=== PATIENT | female | born 1975 | race Two or more races ===

== ENCOUNTER 2018-09-05 22:35 | Emergency (ER) | payer OTHER ==
[~2018-09-05] VITALS: Ht 167.6 cm; Wt 140.6 kg
[2018-09-05] MEDS ORDERED: NKM (22:46)
[2018-09-05 22:48] VITALS: BP 126/80
--- NOTE | 2018-09-05 23:09 | Emergency Room Report ---
History of Present Illness General Chief Complaint: Pain Source: Patient Present Illness HPI Patient fell 2 weeks ago. She alleges that she fell down 12 steps. She was seen in [facility], [place]. She was bruised in her head and also had an injury to her left leg and knee. The x-ray did knee and gave her crutches which she was unable to use. She's been taking Motrin but didn't take any yesterday. She's not been sleeping for the last 3 nights. She had a big bump underneath the knee that is the place where the main pain is. She had numbness there that starting to resolve at this time. She feels a bump in that area still. She's given a prescription of Vicodin but she didn't fill it. The patient has a history of chronic low back disc disease and is familiar with Vicodin. She's not taking any blood thinners. Patient denies change in bowel habits, NVD, chest pain, abdominal pain. Later in evaluation she related h/o diabetes off of medication. Also reports chronic dysuria with use of topical creams (not antifungals). Allergies: Coded Allergies: IODINATED CONTRAST- ORAL AND IV DYE (Verified Allergy, Unknown, 09/05/18) Patient History Past Medical History: see triage record Social History: Reports: smoking Social History Narrative cares for young children Last Menstrual Period: 08/14/18 Now: No : 4 Para: 3 Reviewed Nursing Documentation: PMH: Agreed; PSxH: Agreed Nursing Documentation-PMH Hx Diabetes: Yes - TYPE 2 Review of Systems All Other Systems: negative except mentioned in HPI Physical Exam Vital Signs Date Time Temp Pulse Resp B/P (MAP) Pulse Ox O2 Delivery O2 Flow Rate FiO2 09/05/18 22:41 99.3 87 18 126/80 94 Room Air Sp02 EP Interpretation: reviewed, normal General Appearance: no apparent distress, GCS 15, obese Head: normocephalic, atraumatic Eyes: bilateral eye normal inspection, bilateral eye PERRL ENT: hearing grossly normal, normal voice, moist mucus membranes Neck: full range of motion, supple Respiratory: no respiratory distress, speaking full sentences Gastrointestinal: normal inspection, overweight Genitourinary: no CVA tenderness Musculoskeletal: back normal, normal range of motion, no calf tenderness, other - Tenderness lateral knee area with negative Apley's compression and negative drawer sign. There is medial laxity without tenderness. Inferior to the knee on the medial side of the tibia there is still a hematoma present. This is the area where the patient states she is most tender. Neurologic: alert, oriented x3, grossly normal Psychiatric: mood/affect normal Skin: hematoma - L medial tibia Medical Decision Making Diagnostic Impression: Primary Impression: Contusion of left tibia Additional Impressions: Hematoma Hyperglycemia Dysuria ER Course Patient presents 2 weeks post injury to her left knee. Differential includes fracture, sprain, hematoma amongst others. Based on exam main problem is an area of a hematoma in the proximal tibia medially. X-ray indicated to exclude fracture at this time. In addition she'll be given a shot of Toradol. Now c/o hyperglycemia and dysuria. Labs ordered. Glucose elevated. Min elevation of WBC. UA clear. Metformin prescription given. Dontae applied by me. Tension and position excellent with improvement in walking. Distal neurovascular exam normal by my exam. Discussed findings and need for follow up. Suggested use of OTC vaginal antifungals. Patient stable for outpatient observation and treatment. Laboratory Tests Test 09/05/18 23:50 White Blood Count 12.5 K/UL (4.8-10.8) H Red Blood Count 5.21 M/UL (4.20-5.40) Hemoglobin 15.0 G/DL (12.0-16.0) Hematocrit 44.0 % (37.0-47.0) Mean Corpuscular Volume 84 FL (80-99) Mean Corpuscular Hemoglobin 28.8 PG (27.0-31.0) Mean Corpuscular Hemoglobin Concent 34.1 G/DL (32.0-36.0) Red Cell Distribution Width 12.3 % (11.6-14.8) Platelet Count 287 K/UL (150-450) Mean Platelet Volume 7.0 FL (6.5-10.1) Neutrophils (%) (Auto) 60.6 % (45.0-75.0) Lymphocytes (%) (Auto) 32.0 % (20.0-45.0) Monocytes (%) (Auto) 5.2 % (1.0-10.0) Eosinophils (%) (Auto) 1.5 % (0.0-3.0) Basophils (%) (Auto) 0.7 % (0.0-2.0) Prothrombin Time 9.6 SEC (9.30-11.50) Prothrombin Time INR 0.9 (0.9-1.1) PTT 27 SEC (23-33) Urine Color Pale yellow Urine Appearance Clear Urine pH 5 (4.5-8.0) Urine Specific [place] 1.010 (1.005-1.035) Urine Protein Negative (NEGATIVE) Urine Glucose (UA) 4+ (NEGATIVE) H Urine Ketones Negative (NEGATIVE) Urine Blood Negative (NEGATIVE) Urine Nitrite Negative (NEGATIVE) Urine Bilirubin Negative (NEGATIVE) Urine Urobilinogen Normal MG/DL (0.0-1.0) Urine Leukocyte Esterase 1+ (NEGATIVE) H Urine RBC 0 /HPF (0 - 2) Urine WBC 0-2 /HPF (0 - 2) Urine Squamous Epithelial Cells Occasional /LPF Urine Bacteria Occasional /HPF (NONE) Sodium Level 132 MMOL/L (136-145) L Potassium Level 4.7 MMOL/L (3.5-5.1) Chloride Level 97 MMOL/L (98-107) L Carbon Dioxide Level 27 MMOL/L (21-32) Anion Gap 8 mmol/L (5-15) Blood Urea Nitrogen 16 mg/dL (7-18) Creatinine 0.9 MG/DL (0.55-1.30) Estimate Glomerular Filtration Rate > 60 mL/min (>60) Glucose Level 487 MG/DL (74-106) H Calcium Level 9.3 MG/DL (8.5-10.1) Total Bilirubin 0.3 MG/DL (0.2-1.0) Aspartate Amino Transferase (AST) 15 U/L (15-37) Alanine Aminotransferase (ALT) 40 U/L (12-78) Alkaline Phosphatase 127 U/L (46-116) H Total Creatine Kinase 78 U/L (26-308) Troponin I 0.000 ng/mL (0.000-0.056) Total Protein 7.5 G/DL (6.4-8.2) Albumin 3.4 G/DL (3.4-5.0) Globulin 4.1 g/dL Albumin/Globulin Ratio 0.8 (1.0-2.7) L Last Vital Signs Date Time Temp Pulse Resp B/P (MAP) Pulse Ox O2 Delivery O2 Flow Rate FiO2 09/06/18 02:20 99.3 18 126/80 94 Room Air 4/19/19 22:41 87 Status: improved Disposition: HOME, SELF-CARE Condition: Improved Scripts Metformin Hcl* (METFORMIN HCL*) 500 Mg Tablet 500 MG ORAL TWICE A DAY, #30 TAB 1 Refill Prov: Robert Huerta MD 09/06/18 Naproxen* (NAPROXEN*) 375 Mg Tablet. 375 MG ORAL BID, #20 TAB Prov: Robert Huerta MD 09/06/18 Hydrocodone Bit/Acetaminophen 5-325* (NORCO 5-325*) 1 Each Tablet 1 TAB ORAL Q6H PRN for For Pain, #8 TAB 0 Refills Prov: Robert Huerta MD 09/06/18 Robert Huerta MD Sep 05, 2018 23:09
[2018-09-05] MEDS ORDERED: Ketorolac 30mg Inj IM ONE (23:15)
[2018-09-06 00:04] LABS: APPEARANCE,URINE CLEAR; BASOPHILS % (AUTO) 0.7 % (0.0-2.0); BILIRUBIN, URINE NEGATIVE (NEGATIVE); COLOR,URINE PALE YELLOW; EOSINOPHILS % (AUTO) 1.5 % (0.0-3.0); GLUCOSE, URINE (UA) 4+ (NEGATIVE); KETONES,URINE NEGATIVE (NEGATIVE); LEUKOCYTE ESTERASE ,URINE 1+ (NEGATIVE); MEAN CORPUSCULAR VOLUME 84 FL (80-99); MONOCYTES % (AUTO) 5.2 % (1.0-10.0); NEUTROPHILS % (AUTO) 60.6 % (45.0-75.0); NITRITE,URINE NEGATIVE (NEGATIVE); PH,URINE 5 (4.5-8.0); PLATELET COUNT 287 K/UL (150-450); PROTEIN,URINE NEGATIVE (NEGATIVE); RED BLOOD COUNT 5.21 M/UL (4.20-5.40); RED CELL DISTRIBUTION WIDTH 12.3 % (11.6-14.8); UROBILINOGEN,URINE NORMAL MG/DL (0.0-1.0); WHITE BLOOD COUNT 12.5 K/UL (4.8-10.8)
[2018-09-06 00:37] LABS: INR 0.9 (0.9-1.1)
[2018-09-06 00:59] LABS: ANION GAP 8 mmol/L (5-15); BLOOD UREA NITROGEN 16 mg/dL (7-18); CALCIUM 9.3 MG/DL (8.5-10.1); CARBON DIOXIDE 27 MMOL/L (21-32); CHLORIDE 97 MMOL/L (98-107); CREATININE 0.9 MG/DL (0.55-1.30); POTASSIUM 4.7 MMOL/L (3.5-5.1); SODIUM 132 MMOL/L (136-145)
[2018-09-06 01:03] LABS: ALANINE AMINOTRANSFERASE 40 U/L (12-78); ALBUMIN 3.4 G/DL (3.4-5.0); ALBUMIN/GLOBULIN RATIO 0.8 (1.0-2.7); ALKALINE PHOSPHATASE 127 U/L (46-116); ASPARTATE AMINO TRANSFERASE 15 U/L (15-37); BILIRUBIN,TOTAL 0.3 MG/DL (0.2-1.0); CREATINE KINASE 78 U/L (26-308)
[2018-09-06] MEDS ORDERED: METFORMIN HCL500 M1 ORAL (02:08)
[2018-09-06] MEDS ORDERED: NAPROXEN375 M2 ORAL (02:08)
[2018-09-06] MEDS ORDERED: NORCO 5-325 TA1 EACH ORAL (02:08)
[2018-09-06 02:20] VITALS: BP 126/80
== END 2018-09-06 02:22 | disposition home or self-care (01) ==
LOC: EMR 23:30
DX: S80.12XA Contusion of left lower leg, initial encounter (principal); W10.9XXA Fall (on) (from) unspecified stairs and steps, initial encounter; Y92.9 Unspecified place or not applicable; Z91.041 Radiographic dye allergy status; F17.200 Nicotine dependence, unspecified, uncomplicated; M51.36 Other intervertebral disc degeneration, lumbar region; E11.65 Type 2 diabetes mellitus with hyperglycemia; R30.0 Dysuria; E66.9 Obesity, unspecified; Z68.43 Body mass index [BMI] 50.0-59.9, adult
CPT/HCPCS: 36415; 73590; 80053; 81003; 82550; 82962; 84484; 85025; 85610; 85730; 96360; 96372; 99284; J1885

== ENCOUNTER 2018-09-27 22:22 | Emergency (ER) | payer OTHER ==
[~2018-09-27] VITALS: Ht 167.6 cm; Wt 140.6 kg
[~2018-09-27 22:22] MED LIST: METFORMIN HCL500 M1 ORAL; NAPROXEN375 M2 ORAL; NKM; NORCO 5-325 TA1 EACH ORAL
--- NOTE | 2018-09-27 22:33 | NUR ---
ED Nurse Note: pt walked in c/o generalized weakness x 1wk, nausea but no vomiting and left breast pain x 3wks, pt robbin any family hx breast CA but reports mother had ovarian tumor before, pt states she doesn't feel any lumps besides pain. pt reports she has hx DM, HTN only when she has pain but does not take any medication for blood pressure. pt AA&ox4, gcs=15, skin warm and dry, resp even and unlabored on RA, +nausea but no dry heaves, no active vomiting nor diarrhea at this time, ambulates w/ steady gait. VSS. report given to PIETER Swartz.
--- NOTE | 2018-09-27 22:40 | NUR ---
ACCUCHECK 288 ERMD NOTIFIED
--- NOTE | 2018-09-27 22:56 | Emergency Room Report ---
History of Present Illness General Chief Complaint: Generalized Weakness Source: Patient Present Illness HPI Patient presents with several problems. The main one today is that she's having left breast pain to palpation. This is been over 3 days. She's had to stop touching herself in that area because the pain is as fairly severe. She rates it 7/10 at this time. In addition she's felt feverish. She's never had a mammogram. There is no family history of breast cancer. The patient has hyperglycemia and his been taking metformin. When she was here last her blood sugar was 400. She has polyuria polydipsia and feels fatigued. She had to use insulin when she was . She's not used insulin recently. She takes metformin thousand milligrams twice a day. Third problem is that she has yeast infection. She was given medication when she was seen last time. Still is bothering her. In addition she feels bumps in her labia on the left-hand side. This is a recurrent problem for her. She' s been using local care. She was seen here after falling downstairs. She still has bruising but this is resolving. The pain from the fall is also resolving. Did not injure her chest her breast when she fell. Chronic back pain with disk disease - occasionally takes Vicodin, not have any at this time. Allergies: Coded Allergies: IODINATED CONTRAST- ORAL AND IV DYE (Verified Allergy, Unknown, 09/27/18) Patient History Past Medical History: see triage record Social History: Denies: smoking Social History Narrative with daughter Last Menstrual Period: 09/14/18 Now: No : 5 Para: 3 Reviewed Nursing Documentation: PMH: Agreed; PSxH: Agreed Nursing Documentation-PMH Past Medical History: No History, Except For Hx Hypertension: Yes Hx Diabetes: Yes Review of Systems All Other Systems: negative except mentioned in HPI Physical Exam Vital Signs Date Time Temp Pulse Resp B/P (MAP) Pulse Ox O2 Delivery O2 Flow Rate FiO2 09/27/18 22:27 98.4 90 18 96 Room Air Sp02 EP Interpretation: reviewed, normal General Appearance: well appearing, no apparent distress, GCS 15, obese Head: normocephalic Eyes: bilateral eye normal inspection, bilateral eye PERRL, bilateral eye EOMI ENT: moist mucus membranes Neck: supple Respiratory: lungs clear, normal breath sounds, other - no chest wall tenderness - see breast exam below Cardiovascular #1: regular rate, rhythm Cardiovascular #2: 2+ radial (R) Gastrointestinal: normal inspection, normal bowel sounds, non tender, no mass, non-distended, overweight Genitourinary: no CVA tenderness Musculoskeletal: normal inspection, back normal, gait/station normal, normal range of motion, other - tender resolving hematoma below tibia Neurologic: alert, oriented x3, grossly normal Psychiatric: mood/affect normal Skin: normal inspection, warm/dry Medical Decision Making Diagnostic Impression: Primary Impression: Pain of left breast Additional Impressions: UTI (urinary tract infection) Qualified Codes: N30.00 - Acute cystitis without hematuria Hyperglycemia ER Course Patient presents with 2 problems. She has pain in her left breast for 3 days. She's also felt feverish. There is no rash there. She also has discharge. In addition her sugars were high and she is taking metformin but feels weak. Differential includes hyperosmolar state, hyperglycemia, electrolyte imbalance, fibrocystic breast disease, mastitis, urinary tract infection, yeast infection amongst others. Patient will be evaluated with EKG, chest x-ray and labs. The patient will receive IV hydration and Reglan with Benadryl for nausea. Patient will be given Bactrim. EKG without injury. Chest x-ray no infiltrates. Labs with glucose of 323 no acidosis. Urinalysis with pyuria. Patient given a dose of Rocephin to cover the UTI. After IV hydration blood glucose is 247. Patient had epigastric pain and was given a dose of Mylanta and Pepcid orally. Patient still complaining about pain in her chest and although she had refused analgesia she's given a dose of Toradol along with Zofran as she still felt nausea and epigastric pain. Improved. Discussed adding second diabetic medication. Laboratory Tests Test 09/27/18 22:50 White Blood Count 12.9 K/UL (4.8-10.8) H Red Blood Count 5.40 M/UL (4.20-5.40) Hemoglobin 15.4 G/DL (12.0-16.0) Hematocrit 45.2 % (37.0-47.0) Mean Corpuscular Volume 84 FL (80-99) Mean Corpuscular Hemoglobin 28.5 PG (27.0-31.0) Mean Corpuscular Hemoglobin Concent 34.0 G/DL (32.0-36.0) Red Cell Distribution Width 12.2 % (11.6-14.8) Platelet Count 315 K/UL (150-450) Mean Platelet Volume 6.3 FL (6.5-10.1) L Neutrophils (%) (Auto) 55.9 % (45.0-75.0) Lymphocytes (%) (Auto) 35.7 % (20.0-45.0) Monocytes (%) (Auto) 5.9 % (1.0-10.0) Eosinophils (%) (Auto) 1.5 % (0.0-3.0) Basophils (%) (Auto) 1.0 % (0.0-2.0) Prothrombin Time 9.8 SEC (9.30-11.50) Prothrombin Time INR 0.9 (0.9-1.1) PTT 27 SEC (23-33) Urine Color Pale yellow Urine Appearance Slightly cloudy Urine pH 5 (4.5-8.0) Urine Specific [place] 1.015 (1.005-1.035) Urine Protein 1+ (NEGATIVE) H Urine Glucose (UA) 4+ (NEGATIVE) H Urine Ketones Negative (NEGATIVE) Urine Blood 2+ (NEGATIVE) H Urine Nitrite Positive (NEGATIVE) H Urine Bilirubin Negative (NEGATIVE) Urine Urobilinogen Normal MG/DL (0.0-1.0) Urine Leukocyte Esterase 2+ (NEGATIVE) H Urine RBC 5-10 /HPF (0 - 2) H Urine WBC 10-15 /HPF (0 - 2) H Urine Squamous Epithelial Cells Many /LPF (NONE/OCC) H Urine Bacteria Moderate /HPF (NONE) H Urine HCG, Qualitative Negative (NEGATIVE) Sodium Level 135 MMOL/L (136-145) L Potassium Level 4.4 MMOL/L (3.5-5.1) Chloride Level 100 MMOL/L (98-107) Carbon Dioxide Level 26 MMOL/L (21-32) Anion Gap 9 mmol/L (5-15) Blood Urea Nitrogen 12 mg/dL (7-18) Creatinine 0.9 MG/DL (0.55-1.30) Estimate Glomerular Filtration Rate > 60 mL/min (>60) Glucose Level 323 MG/DL (74-106) H Calcium Level 9.4 MG/DL (8.5-10.1) Total Bilirubin 0.3 MG/DL (0.2-1.0) Aspartate Amino Transferase (AST) 14 U/L (15-37) L Alanine Aminotransferase (ALT) 30 U/L (12-78) Alkaline Phosphatase 101 U/L (46-116) Total Protein 7.3 G/DL (6.4-8.2) Albumin 3.5 G/DL (3.4-5.0) Globulin 3.8 g/dL Albumin/Globulin Ratio 0.9 (1.0-2.7) L Lipase 111 U/L (73-393) EKG Diagnostic Results Rate: normal Rhythm: NSR ST Segments: no acute changes Rhythm Strip Diag. Results EP Interpretation: yes Rhythm: NSR, no PVC's, no ectopy Chest X-Ray Diagnostic Results Chest X-Ray Diagnostic Results : Chest X-Ray Ordered: Yes # of Views/Limited/Complete: 1 View Indication: Chest Pain EP Interpretation: Yes Interpretation: no consolidation, no effusion, no pneumothorax Impression: No acute disease Electronically Signed by: Electronically signed by Robert Huerta MD Last Vital Signs Date Time Temp Pulse Resp B/P (MAP) Pulse Ox O2 Delivery O2 Flow Rate FiO2 09/28/18 03:15 98.2 71 18 159/99 94 Room Air Status: improved Disposition: HOME, SELF-CARE Condition: Improved Scripts Naproxen* (NAPROSYN*) 250 Mg Tablet 250 MG ORAL TID PRN for For Pain, #20 TAB 0 Refills Prov: Robert Huerta MD 09/28/18 Clotrimazole (GYNE-LOTRIMIN*) 45 Gm Cream.appl 1 APPLIC VG QHS, #45 GM 0 Refills Prov: Robert Huerta MD 09/28/18 Trimethoprim/Sulfamethoxazole 160/800* (BACTRIM DS TABLET*) 1 Each Tablet 1 TAB ORAL Q12H, #14 TAB 0 Refills Prov: Robert Huerta MD 09/28/18 Ondansetron Odt* (ZOFRAN ODT*) 4 Mg Tab.rapdis 4 MG BC EVERY 8 HOURS PRN for Nausea & Vomiting, #20 TAB 0 Refills Prov: Robert Huerta MD 09/28/18 Famotidine (PEPCID AC) 20 Mg Tablet 20 MG PO DAILY, #30 TAB Prov: Robert Huerta MD 09/28/18 Glyburide (GLYBURIDE) 5 Mg Tablet 5 MG PO DAILY, #30 TAB Prov: Robert Huerta MD 09/28/18 Referrals: NOT CHOSEN IPA/,REFERRING (PCP) Robert Huerta MD September 27, 2018 22:56
[2018-09-27] MEDS ORDERED: Bacitracin Oint UD TOPIC ONE (23:00)
[2018-09-27] MEDS ORDERED: Bactrim-DS 1 tab ORAL ONE (23:00)
[2018-09-27 23:02] LABS: APPEARANCE,URINE SLIGHTLY CLOUDY; BILIRUBIN, URINE NEGATIVE (NEGATIVE); COLOR,URINE PALE YELLOW; GLUCOSE, URINE (UA) 4+ (NEGATIVE); KETONES,URINE NEGATIVE (NEGATIVE); LEUKOCYTE ESTERASE ,URINE 2+ (NEGATIVE); NITRITE,URINE POSITIVE (NEGATIVE); PH,URINE 5 (4.5-8.0); PROTEIN,URINE 1+ (NEGATIVE); UROBILINOGEN,URINE NORMAL MG/DL (0.0-1.0)
[2018-09-27 23:03] LABS: EOSINOPHILS % (AUTO) 1.5 % (0.0-3.0); HEMATOCRIT 45.2 % (37.0-47.0); HEMOGLOBIN 15.4 G/DL (12.0-16.0); LYMPHOCYTES % (AUTO) 35.7 % (20.0-45.0); MEAN CORPUSCULAR VOLUME 84 FL (80-99); MONOCYTES % (AUTO) 5.9 % (1.0-10.0); NEUTROPHILS % (AUTO) 55.9 % (45.0-75.0); PLATELET COUNT 315 K/UL (150-450); RED CELL DISTRIBUTION WIDTH 12.2 % (11.6-14.8); WHITE BLOOD COUNT 12.9 K/UL (4.8-10.8)
[2018-09-27 23:13] VITALS: BP 168/86
[2018-09-27 23:17] LABS: ANION GAP 9 mmol/L (5-15); BLOOD UREA NITROGEN 12 mg/dL (7-18); CALCIUM 9.4 MG/DL (8.5-10.1); CARBON DIOXIDE 26 MMOL/L (21-32); CHLORIDE 100 MMOL/L (98-107); CREATININE 0.9 MG/DL (0.55-1.30); POTASSIUM 4.4 MMOL/L (3.5-5.1); SODIUM 135 MMOL/L (136-145)
[2018-09-27 23:21] LABS: ALANINE AMINOTRANSFERASE 30 U/L (12-78); ALBUMIN 3.5 G/DL (3.4-5.0); ALBUMIN/GLOBULIN RATIO 0.9 (1.0-2.7); ALKALINE PHOSPHATASE 101 U/L (46-116); ASPARTATE AMINO TRANSFERASE 14 U/L (15-37); BILIRUBIN,TOTAL 0.3 MG/DL (0.2-1.0)
[2018-09-27 23:25] LABS: INR 0.9 (0.9-1.1)
--- NOTE | 2018-09-27 23:44 | Diagnostic Imaging Report ---
EXAM: XR Chest, 1 View CLINICAL HISTORY: ABD PAIN TECHNIQUE: Frontal view of the chest. COMPARISON: No relevant prior studies available. FINDINGS: Cardiac silhouette of normal size allowing for portable technique. No evidence for edema, consolidation or other acute cardiopulmonary process. IMPRESSION: No acute cardiopulmonary findings
[2018-09-28] MEDS ORDERED: Metoclopramide 10mg/2ml Inj IVP ONE
[2018-09-28] MEDS ORDERED: DiphenhydrAMINE 50mg/ml Inj IVP ONE
[2018-09-28] MEDS ORDERED: cefTRIAXone 1 GM in NS 55 ML IVPB ONE (00:15)
[2018-09-28] MEDS ORDERED: Mylanta II UD 30ml ORAL ONE (00:45)
[2018-09-28] MEDS ORDERED: Ketorolac 30mg Inj IV ONE (02:30)
[2018-09-28] MEDS ORDERED: NAPROXEN250 MG ORAL (03:09)
[2018-09-28] MEDS ORDERED: GYNE-LOTRIMIN45 GM VG (03:09)
[2018-09-28] MEDS ORDERED: GLYBURIDE5 MG PO (03:09)
[2018-09-28] MEDS ORDERED: PEPCID AC20 M2 PO (03:09)
[2018-09-28] MEDS ORDERED: BACTRIM DS TAB1 EAC1 ORAL (03:09)
[2018-09-28] MEDS ORDERED: ONDANSETRON ODT4 MG BC (03:09)
[2018-09-28 03:15] VITALS: BP 159/99
--- NOTE | 2018-09-28 03:15 | NUR ---
ED Nurse Note: Pt cleared by . Pt A/Ox4. Discharge paperwork and presctiptions provided. pt verbalized understanding of all instructions. ID band and IV removed. Pt ambuated out of ER with steady gait with daughter at side. VSS. Showed no signs of distress.
== END 2018-09-28 03:15 | disposition home or self-care (01) ==
LOC: EMR 22:33
DX: N64.4 Mastodynia (principal); N30.00 Acute cystitis without hematuria; E11.65 Type 2 diabetes mellitus with hyperglycemia; I10 Essential (primary) hypertension; Z91.041 Radiographic dye allergy status; Z79.84 Long term (current) use of oral hypoglycemic drugs; E66.3 Overweight; Z68.43 Body mass index [BMI] 50.0-59.9, adult
CPT/HCPCS: 36415; 71045; 80053; 81003; 81025; 82962; 83690; 85025; 85610; 85730; 87086; 93005; 96361; 96365; 96375; 99284; J0696; J1200; J1885; J2405; J2765

== ENCOUNTER 2018-12-27 21:08 | Emergency (ER) | payer OTHER ==
[~2018-12-27] VITALS: Ht 167.6 cm; Wt 145.1 kg
[~2018-12-27 21:08] MED LIST changes: +BACTRIM DS TAB1 EAC1 ORAL; +GLYBURIDE5 MG PO; +GYNE-LOTRIMIN45 GM VG; +NAPROXEN250 MG ORAL; +ONDANSETRON ODT4 MG BC; +PEPCID AC20 M2 PO
[2018-12-27 22:01] VITALS: BP 158/91
--- NOTE | 2018-12-27 22:05 | NUR ---
ED Nurse Note: Patient walked in to ER c/o vaginal bleeding. Stated that had miscarage before and thinking that yhis is same story. AAO x4, VSS at this time, skin is dry warm to touch.
[2018-12-27 22:23] LABS: APPEARANCE,URINE CLOUDY; BILIRUBIN, URINE NEGATIVE (NEGATIVE); COLOR,URINE YELLOW; GLUCOSE, URINE (UA) 3+ (NEGATIVE); KETONES,URINE 3+ (NEGATIVE); LEUKOCYTE ESTERASE ,URINE 3+ (NEGATIVE); NITRITE,URINE POSITIVE (NEGATIVE); PH,URINE 5 (4.5-8.0); PROTEIN,URINE 2+ (NEGATIVE); UROBILINOGEN,URINE 1 MG/DL (0.0-1.0)
[2018-12-27] MEDS ORDERED: NITROFURANTOIN100 M2 ORAL (22:49)
--- NOTE | 2018-12-27 22:49 | Emergency Room Report ---
History of Present Illness General Chief Complaint: Female Urogenital Problems Source: Patient, Medical Record Present Illness HPI This is a 43-year-old female with no significant past medical history. She presents with chief complaint of vaginal bleeding. She said her menstrual period was about 3 weeks ago. She had some spotting and cramping last night. This morning was heavier bleeding. She was worried that she may have had a miscarriage. Last sexual intercourse was over a month ago. No fever chills but no nausea no vomiting. Denies any other complaint. Bleeding is much less now. No pain now. No urinary complaint. Allergies: Coded Allergies: IODINATED CONTRAST- ORAL AND IV DYE (Verified Allergy, Unknown, 09/27/18) Patient History Past Medical History: see triage record, old chart reviewed Past Surgical History: other Pertinent Family History: none Social History: Denies: smoking Last Menstrual Period: 11/26/2018 Now: No - Unknown : 5 Para: 3 Immunizations: other Reviewed Nursing Documentation: PMH: Agreed; PSxH: Agreed Nursing Documentation-PMH Hx Hypertension: Yes Hx Diabetes: Yes Review of Systems Eye: Denies: eye pain, blurred vision ENT: Denies: ear pain, nose congestion, throat swelling Respiratory: Denies: cough, shortness of breath Cardiovascular: Denies: chest pain, palpitations Gastrointestinal: Denies: abdominal pain, diarrhea, nausea, vomiting Genitourinary: Reports: vag bleed/dc Musculoskeletal: Denies: back pain, joint pain Skin: Denies: rash Neurological: Denies: headache, numbness Endocrine: Denies: increased thirst, increased urine Hematologic/Lymphatic: Denies: easy bruising All Other Systems: negative except mentioned in HPI Physical Exam Vital Signs Date Time Temp Pulse Resp B/P (MAP) Pulse Ox O2 Delivery O2 Flow Rate FiO2 12/27/18 21:30 98.2 72 18 158/91 (113) 97 Room Air Vitals with high blood pressure Sp02 EP Interpretation: reviewed, normal General Appearance: well appearing, no apparent distress, alert, obese Head: normocephalic, atraumatic Eyes: bilateral eye PERRL, bilateral eye EOMI ENT: hearing grossly normal, normal pharynx Neck: full range of motion, supple, no meningismus Respiratory: chest non-tender, lungs clear, normal breath sounds Cardiovascular #1: regular rate, rhythm, no murmur Gastrointestinal: normal bowel sounds, non tender, no mass, no organomegaly, no bruit, non-distended Genitourinary: other - Exam done with female nurse as a and p technician. External exam normal. Internal exam with scant blood from the Os Musculoskeletal: back normal, gait/station normal, normal range of motion Psychiatric: mood/affect normal Medical Decision Making Diagnostic Impression: Primary Impression: UTI (urinary tract infection) Qualified Codes: N30.00 - Acute cystitis without hematuria Additional Impression: Dysfunctional uterine bleeding ER Course Presents with breakthrough bleeding. No evidence of ectopic or . She does have urinary tract infection. Antibiotics given. Last Vital Signs Date Time Temp Pulse Resp B/P (MAP) Pulse Ox O2 Delivery O2 Flow Rate FiO2 12/27/18 22:01 98.2 18 158/91 97 Room Air 12/27/18 21:30 72 Status: improved Disposition: HOME, SELF-CARE Condition: Stable Scripts Nitrofurantoin Monohyd/M-Cryst* (MACROBID 100 MG*) 100 Mg Capsule 100 MG ORAL EVERY 12 HOURS, #14 CAP Prov: Robles Mclaughlin MD 12/27/18 Patient Instructions: Urinary Tract Infection Additional Instructions: Follow-up with your doctor in 7 days. Return if worse. Robles Mclaughlin MD Dec 27, 2018 22:49
[2018-12-27 22:53] VITALS: BP 158/91
--- NOTE | 2018-12-27 22:54 | NUR ---
ED Nurse Note: Pt cleared by health care Provider for discharge. DC instructions/prescription was given and explained to pt and verbalized understanding of teachings. All medical deviecs such as ID band removed. Pt is AAO x4, ambulatory and left with all personal belongings.
== END 2018-12-27 22:55 | disposition home or self-care (01) ==
LOC: EMR 22:10
DX: N93.9 Abnormal uterine and vaginal bleeding, unspecified (principal); N30.00 Acute cystitis without hematuria; Z91.041 Radiographic dye allergy status; E11.9 Type 2 diabetes mellitus without complications; I10 Essential (primary) hypertension
CPT/HCPCS: 81003; 81025; 87086; 87181; 99283